=== PATIENT | female | born 1970 ===

== ENCOUNTER 2017-04-25 17:08 | Emergency (ER) | payer OTHER ==
[2017-04-25 17:45] VITALS: BMI 23.3
[2017-04-25] MEDS ORDERED: Sodium Chloride 0.9% 1,000 ML IV STA (17:46)
--- NOTE | 2017-04-25 17:50 | C.PDOC ---
History Of Present Illness 46 y/o F c no PMHx p/w fever x 1 day. Patient states she was having some mild dysuria for a week, not treated and today, began having fever, chills, lower back pain, nausea. Went to PMD Vinod's office and found to be febrile, tachycardic and sent to ED for further evaluation. Patient denies vomiting, diarrhea, rash, abdominal pain, dyspnea, cough. Time Seen by Provider: 04/25/17 17:46 Chief Complaint (Nursing): Back Pain Past Medical History Vital Signs: Last Vital Signs Temp 101 F H 04/25/17 17:50 Pulse 117 H 04/25/17 17:50 Resp 18 04/25/17 17:50 BP 112/74 04/25/17 17:50 Pulse Ox 98 04/25/17 17:51 Family History: States: No Known Family Hx Review Of Systems Except As Marked, All Systems Reviewed And Found Negative. Cardiovascular: Negative for: Chest Pain Respiratory: Negative for: Shortness of Breath Physical Exam - Physical Exam Additional Physical Exam Comments: Gen: NAD Head: NC Eyes: No scleral icterus ENT: MMM Neck: Supple Chest: No tenderness CV: Tachycardic Lungs: CTA b/l Abd: Mild suprapubic tenderness Back: No CVA tenderness Extremities: No swelling Skin: No rash over back Neuro: Alert, no focal deficit ED Course And Treatment - Laboratory Results Result Diagrams: 04/25/17 18:13 04/25/17 18:13 O2 Sat by Pulse Oximetry: 98 Medical Decision Making Medical Decision Making: Hydrate, acetaminophen, Zofran, IVF, check labs and urine. Clinically concerning for pyelonephritis. Depending on response to treatment and lab findings will determine discharge vs inpatient treatment for IV antibiotics. Patient in no acute distress. Labs unremarkable. Negative lactate. No acidosis. Vital signs normalized. 1st dose cipro administered here, will continue PO at home, f/u Dr. Brock, return to ED for worsening pain, fever, dyspnea, vomiting, or any other problem. Disposition Discussed With : Hernesto Brock - Disposition Referrals: Hernesto Brock MD [Staff Provider] - Disposition: HOME/ ROUTINE Disposition Time: 18:54 Condition: STABLE Prescriptions: Acetaminophen [Tylenol 325mg tab] 2 tab PO Q4H #30 tab Ciprofloxacin [Cipro] 500 mg PO BID #14 tab Ondansetron ODT [Zofran ODT] 4 mg PO Q8 #12 odt Instructions: Kidney Infection, Urinary Tract Infections in Adults Forms: [facility] ([place]), Work Excuse - Clinical Impression Clinical Impression: Pyelonephritis
[2017-04-25 18:11] LABS: HCG,QUALITATIVE URINE NEGATIVE (NEGATIVE)
[2017-04-25 18:17] LABS: BASO % 0.4 % (0.0-2.0); HEMOGLOBIN 12.8 g/dL (11.0-16.0); LYMPH # 0.4 K/uL (1.0-4.3); LYMPH % 3.2 % (20.0-40.0); MEAN CELL VOLUME 88.9 fL (81.0-99.0); MEAN CORPUSCULAR HEMOGLOBIN 30.7 pg (27.0-31.0); MEAN CORPUSCULAR HGB CONC 34.5 g/dL (33.0-37.0); MEAN PLATELET VOLUME 7.3 fL (7.2-11.7); MONO # 0.9 K/uL (0.0-0.8); MONO % 7.4 % (0.0-10.0); NEUT # 10.3 K/uL (1.8-7.0); PLATELET COUNT 370 K/uL (130-400); RBC 4.18 Mil/uL (3.80-5.20); RED CELL DISTRIBUTION WIDTH 13.2 % (11.5-14.5); WHITE BLOOD COUNT 11.5 K/uL (4.8-10.8)
[2017-04-25 18:17] LABS: URINE BACTERIA OCC (<OCC); URINE BILIRUBIN NEGATIVE (NEGATIVE); URINE BLOOD 1+ (NEGATIVE); URINE CLARITY Hazy (Clear); URINE COLOR Yellow (YELLOW); URINE GLUCOSE (UA) NORMAL (Normal); URINE LEUKOCYTE ESTERASE 3+ Leu/uL (Negative); URINE NITRATE POSITIVE (NEGATIVE); URINE PROTEIN 2+ mg/dL (NEGATIVE); URINE UROBILINOGEN NORMAL mg/dL (0.2-1.0)
[2017-04-25] MEDS ORDERED: Sodium Chloride 0.9% 1,000 ML ONE (18:24)
[2017-04-25] MEDS ORDERED: Ciprofloxacin 400mg/200ml D5W 400 MG/200 ML BAG IVPB STA (18:28)
[2017-04-25 18:36] LABS: ALB/GLOB RATIO 1.1 (1.0-2.1); ALBUMIN 4.3 g/dL (3.5-5.0); ALT/SGPT 54 U/L (9-52); AST/SGOT 51 U/L (14-36); BLOOD UREA NITROGEN 13 mg/dL (7-17); CALCIUM 9.1 mg/dl (8.6-10.4); GFR AFRICAN-AMERICAN > 60; GFR NON-AFRICAN AMERICAN > 60
[2017-04-25 18:45] LABS: LYMPHOCYTE 6 % (20-40); MONOCYTE 7 % (0-10); NEUTROPHIL 87 % (50-75); TOTAL CELLS COUNTED 100
[2017-04-25 18:46] LABS: PLATELET ESTIMATE NORMAL (NORMAL)
[2017-04-25] MEDS ORDERED: Ciprofloxacin 400mg/200ml D5W 400 MG/200 ML BAG IVPB ONE (18:49)
[2017-04-25 18:51] LABS: VENOUS BLOOD GAS BASE EXCESS 2.5 mmol/L (0.0-2.0); VENOUS BLOOD GAS PCO2 37 mmHg (40-60); VENOUS BLOOD GAS PO2 37 mm/Hg (30-55); VENOUS BLOOD PH 7.46 (7.32-7.43)
[2017-04-25 20:33] VITALS: BP 106/65; PULSE 82; RESP 20; TEMP 98.8; O2SAT 98
== END 2017-04-25 20:36 | disposition home or self-care (01) ==
LOC: C.ER 17:08
DX: N12 Tubulo-interstitial nephritis, not specified as acute or chronic (principal)
CPT/HCPCS: 80053; 81001; 82803; 84703; 85025; 87040; 87086; 87181; 87205; 96361; 96374; 99285; J2405; J7040

== ENCOUNTER 2017-04-26 18:14 | Inpatient (IN) | payer OTHER ==
--- NOTE | 2017-04-26 20:45 | C.PDOC ---
History Of Present Illness Patient is a 46 y/o female who presents to the ED with complaints of fever, chills, and back pain. Patient was seen in ED yesterday for UTI; negative for rods in patient's urine. Patient has no other physical complaints at this time. Time Seen by Provider: 04/26/17 20:45 Chief Complaint (Nursing): Medical Clearance History Per: Patient History/Exam Limitations: no limitations Onset/Duration Of Symptoms: Days (yesterday) Current Symptoms Are (Timing): Still Present Severity: Severe Pain Scale Rating Of: 6 Reports Recently: Seen In ED (seen yesterday) Recent travel outside of the [place]: No Additional History Per: Patient Past Medical History Reviewed: Historical Data, Nursing Documentation, Vital Signs Vital Signs: Last Vital Signs Temp 98 F 04/26/17 18:21 Pulse 71 04/26/17 18:21 Resp 18 04/26/17 18:21 BP 118/76 04/26/17 18:21 Pulse Ox 100 04/26/17 21:03 - Medical History PMH: No Chronic Diseases Surgical History: No Surg Hx Family History: States: No Known Family Hx - Social History Hx Tobacco Use: No Hx Alcohol Use: No Hx Substance Use: No - Immunization History Hx Tetanus Toxoid Vaccination: No Hx Influenza Vaccination: No Hx Pneumococcal Vaccination: No Review Of Systems Constitutional: Positive for: Fever, Chills Cardiovascular: Negative for: Chest Pain Respiratory: Negative for: Shortness of Breath Gastrointestinal: Positive for: Nausea, Abdominal Pain Genitourinary: Positive for: Other (current UTI) Musculoskeletal: Positive for: Back Pain Skin: Negative for: Rash Neurological: Negative for: Weakness Psych: Negative for: Anxiety Physical Exam - Physical Exam Appears: Well, Non-toxic, No Acute Distress Skin: Warm, Dry Head: Normacephalic Eye(s): bilateral: Normal Inspection Oral Mucosa: Moist Neck: Supple Chest: Symmetrical Cardiovascular: Rhythm Regular, No Murmur Respiratory: No Accessory Muscle Use, No Rales, No Rhonchi, No Wheezing Gastrointestinal/Abdominal: Bowel Sounds (positive), Soft, Tenderness (mild suprapubic tenderness ), No Guarding, No Rebound Back: CVA Tenderness Extremity: Normal ROM Extremity: Bilateral: Atraumatic Pulses: Left Dorsalis Pedis: Normal, Right Dorsalis Pedis: Normal Neurological/Psych: Oriented x3, Normal Speech, Normal Cognition Gait: Steady ED Course And Treatment - Laboratory Results Result Diagrams: 04/26/17 21:00 04/26/17 21:00 O2 Sat by Pulse Oximetry: 100 Pulse Ox Interpretation: Normal Progress Note: Blood work, urine culture, and UA ordered. Morphine, zofran, moxifloxacin, and IV fluids administered. spoke with dr young and said to admit to hospitalist Disposition Discussed With Dr.: Nav Cid Comment: accepted the pt on his service and took over the care at 10:30 PM Doctor Will See Patient In The: ED Counseled Patient/Family Regarding: Studies Performed, Diagnosis - Disposition Disposition: HOSPITALIZED Disposition Time: 20:45 Condition: FAIR Forms: [facility] ([place]) - POA Present On Arrival: None - Clinical Impression Clinical Impression: Pyelonephritis - Scribe Statement The provider has reviewed the documentation as recorded by the Scribe Lis Garay All medical record entries made by the Scribe were at my direction and personally dictated by me. I have reviewed the chart and agree that the record accurately reflects my personal performance of the history, physical exam, medical decision making, and the department course for this patient. I have also personally directed, reviewed, and agree with the discharge instructions and disposition. Decision To Admit - Pt Status Changed To: Hospital Disposition Of: Inpatient - Admit Certification Admit to Inpatient:: After my assessment, the patient will require hospitalization for at least two midnights. This is because of the severity of symptoms shown, intensity of services needed, and/or the medical risk in this patient being treated as an outpatient. - InPatient: Physician Admission Certification: I certify that this patient requires 2 or more midnights of care for the following reason:: After my assessment, the patient will require hospitalization for at least two midnights. This is because of the severity of symptoms shown, intensity of services needed, and/or the medical risk in this patient being treated as an outpatient. - . Bed Request Type: Regular Admitting Physician: Nav Cid Patient Diagnosis: Pyelonephritis
[2017-04-26] MEDS ORDERED: Sodium Chloride 0.9% 2,000 ML IV ONE (20:47)
[2017-04-26] MEDS ORDERED: Moxifloxacin IV 400mg/250ml NS 400 MG/250 ML BAG IVPB ONE ×2 (20:50→21:16)
[2017-04-26 21:05] LABS: BASO # 0.1 K/uL (0.0-0.2); BASO % 0.6 % (0.0-2.0); EOS % 0.2 % (0.0-4.0); LYMPH % 9.1 % (20.0-40.0); MEAN CELL VOLUME 89.9 fL (81.0-99.0); MEAN CORPUSCULAR HEMOGLOBIN 30.6 pg (27.0-31.0); MEAN CORPUSCULAR HGB CONC 34.1 g/dL (33.0-37.0); MEAN PLATELET VOLUME 7.3 fL (7.2-11.7); MONO # 1.2 K/uL (0.0-0.8); MONO % 10.1 % (0.0-10.0); NEUT # 9.2 K/uL (1.8-7.0); PLATELET COUNT 377 K/uL (130-400); RBC 4.24 Mil/uL (3.80-5.20); RED CELL DISTRIBUTION WIDTH 13.4 % (11.5-14.5); WHITE BLOOD COUNT 11.5 K/uL (4.8-10.8)
[2017-04-26 21:11] LABS: SQUAMOUS EPITHIAL < 1 /hpf (0-5); URINE BACTERIA RARE (<OCC); URINE BILIRUBIN NEGATIVE (NEGATIVE); URINE BLOOD 1+ (NEGATIVE); URINE CLARITY Clear (Clear); URINE COLOR Yellow (YELLOW); URINE GLUCOSE (UA) NORMAL (Normal); URINE LEUKOCYTE ESTERASE TRACE Leu/uL (Negative); URINE NITRATE NEGATIVE (NEGATIVE); URINE PROTEIN NEGATIVE (NEGATIVE); URINE UROBILINOGEN NORMAL mg/dL (0.2-1.0)
[2017-04-26 21:13] LABS: INR 1.1; PROTHROMBIN TIME 12.6 SECONDS (9.7-12.2)
[2017-04-26] MEDS ORDERED: Sodium Chloride 0.9% 1,000 ML ONE (21:14)
[2017-04-26 21:15] LABS: VENOUS BLOOD GAS BASE EXCESS -0.5 mmol/L (0.0-2.0); VENOUS BLOOD GAS PCO2 39 mmHg (40-60); VENOUS BLOOD GAS PO2 24 mm/Hg (30-55)
[2017-04-26 21:22] LABS: ALB/GLOB RATIO 1.1 (1.0-2.1); ALBUMIN 4.4 g/dL (3.5-5.0); ALT/SGPT 46 U/L (9-52); AST/SGOT 32 U/L (14-36); BLOOD UREA NITROGEN 8 mg/dL (7-17); CALCIUM 9.2 mg/dl (8.6-10.4); GFR AFRICAN-AMERICAN > 60; GFR NON-AFRICAN AMERICAN > 60
[2017-04-26 21:28] LABS: BANDS 2 % (0-2); EOSINOPHIL 1 % (0-4); LYMPHOCYTE 16 % (20-40); MONOCYTE 9 % (0-10); NEUTROPHIL 72 % (50-75); PLATELET ESTIMATE NORMAL (NORMAL); TOTAL CELLS COUNTED 100
--- NOTE | 2017-04-26 23:07 | CP.PCM.HP ---
<Thaddeus Rodriguez - Last Filed: 04/27/17 02:06> History of Present Illness - History of Present Illness History of Present Illness: CC: " UTI" HPI: Patient is a 46 year old female with no past medical history who presents to the ED as instructed by her PMD due to gram negative rods noted in her urine culture and blood culture. Patient reports that she started experience a cough that started last week Saturday and UTI symptoms that started last week . Patient states that by Saturday (04/21/17), her symptoms had improved significantly. However, on 04/23/17, patient noted increase urination and pressure with urination, therefore, she went to see her PMD on , and was sent to the [facility] ED. Patient was noted to have a UTI and was discharged on Ciprofloxacin [Cipro] 500 mg PO BID #14 tab. Patient reports she started to feel better and was even able to go to work on 04/26/17, however, patient noted some fever, chills, back spams and elevated temp after work and was also notified of gram negative rods noted in her urine culture and blood culture, therefore, she came to the ED. During the encounter, patient denied chest pain, palpitations, SOB, nausea, vomiting, hematuria but admits to fever, chills, and back spams PMD: Dr. Brock PMHx: None PSHx: None FHx: Non-contributory Medications: None, expect for new prescription Ciprofloxacin [Cipro] 500 mg PO BID #14 tab, ( Started on 04/25/17) Allergies: Penicillin, Aspirin and percocet ( Dyspnea) Social Hx: lives with and child. Works as a physical therapy. Denies current or former use of tobacco or illicit drugs. Admit ETOH socially Present on Admission - Present on Admission Any Indicators Present on Admission: No Review of Systems - Constitutional Constitutional: Chills, Fever, Malaise. absent: Fatigue, Headache, Lethargy, Weakness - EENT Eyes: absent: Blurred Vision, Change in Vision Ears: absent: Dizziness - Cardiovascular Cardiovascular: absent: Chest Pain, Chest Pain at Rest, Chest Pain with Activity , Dyspnea, Lightheadedness, Palpitations - Respiratory Respiratory: Cough. absent: Dyspnea, Dyspnea on Exertion, Chest Congestion - Gastrointestinal Gastrointestinal: absent: Abdominal Pain, Diarrhea, Nausea, Vomiting - Reproductive: Female Reproductive:Female: Menses 1-7 Days. absent: Vaginal Discharge - Musculoskeletal Musculoskeletal: absent: Muscle Weakness, Neck Pain, Numbness, Tingling - Neurological Neurological: absent: Confusion, Dizziness, Headaches, Tingling, Tremor, Weakness - Psychiatric Psychiatric: absent: Anxiety - Endocrine Endocrine: absent: Fatigue, Palpitations Past Patient History - Past Social History Smoking Status: Never Smoked - PSYCHIATRIC Hx Substance Use: No - SURGICAL HISTORY Hx Surgeries: No Meds Allergies/Adverse Reactions: Allergies Allergy/AdvReac Type Severity Reaction Status Date / Time aspirin Allergy Severe ANAPHYLAXIS Verified 04/26/17 18:23 Penicillins Allergy Unknown Verified 04/26/17 18:23 seafood Allergy Severe SWELLING Uncoded 04/26/17 18:23 Physical Exam - Constitutional Appears: No Acute Distress - Head Exam Head Exam: ATRAUMATIC, NORMAL INSPECTION - Eye Exam Eye Exam: EOMI, Normal appearance - ENT Exam ENT Exam: Mucous Membranes Dry - Respiratory Exam Respiratory Exam: Clear to Auscultation Bilateral, NORMAL BREATHING PATTERN. absent: Rhonchi, Wheezes - Cardiovascular Exam Cardiovascular Exam: REGULAR RHYTHM, +S1, +S2 - GI/Abdominal Exam GI & Abdominal Exam: Normal Bowel Sounds. absent: Tenderness - Extremities Exam Extremities exam: Positive for: normal inspection. Negative for: calf tenderness, pedal edema - Back Exam Back exam: absent: CVA tenderness (L), CVA tenderness (R), paraspinal tenderness , rash noted, vertebral tenderness - Neurological Exam Neurological exam: Alert, Oriented x3 - Psychiatric Exam Psychiatric exam: Normal Affect, Normal Mood Results - Vital Signs Recent Vital Signs: Last Vital Signs Temp 99.8 F H 04/26/17 22:57 Pulse 102 H 04/26/17 22:57 Resp 20 04/26/17 22:57 BP 125/78 04/26/17 22:57 Pulse Ox 99 04/26/17 22:57 - Labs Result Diagrams: 04/26/17 21:00 04/26/17 21:00 Labs: Laboratory Results - last 24 hr 04/26/17 04/26/17 04/26/17 21:00 21:00 21:00 WBC 11.5 H RBC 4.24 Hgb 13.0 Hct 38.1 MCV 89.9 MCH 30.6 MCHC 34.1 RDW 13.4 Plt Count 377 MPV 7.3 Neut % (Auto) 80.0 H Lymph % (Auto) 9.1 L [place] % (Auto) 10.1 H Eos % (Auto) 0.2 Baso % (Auto) 0.6 Neut # (Auto) 9.2 H Lymph # (Auto) 1.0 [place] # (Auto) 1.2 H Eos # (Auto) 0.0 Baso # (Auto) 0.1 Neutrophils % (Manual) 72 Band Neutrophils % 2 Lymphocytes % (Manual) 16 L Monocytes % (Manual) 9 Eosinophils % (Manual) 1 Platelet Estimate Normal PT 12.6 H INR 1.1 APTT 29 pO2 VBG pH VBG pCO2 VBG HCO3 VBG Total CO2 VBG O2 Sat (Calc) VBG Base Excess VBG Potassium Glucose Lactate Sodium 136 Potassium 3.5 L Chloride 96 L Carbon Dioxide 26 Anion Gap 18 BUN 8 Creatinine 0.7 Est GFR ( Amer) > 60 Est GFR (Non-Af Amer) > 60 Random Glucose 94 Calcium 9.2 Total Bilirubin 0.9 AST 32 ALT 46 Alkaline Phosphatase 62 Total Protein 8.6 H Albumin 4.4 Globulin 4.1 H Albumin/Globulin Ratio 1.1 Venous Blood Potassium Urine Color Urine Clarity Urine pH Ur Specific [place] Urine Protein Urine Glucose (UA) Urine Ketones Urine Blood Urine Nitrate Urine Bilirubin Urine Urobilinogen Ur Leukocyte Esterase Urine WBC (Auto) Urine RBC (Auto) Ur Squamous Epith Cells Ur Transition Epith Cell Urine Bacteria 04/26/17 04/26/17 21:00 21:10 WBC RBC Hgb Hct MCV MCH MCHC RDW Plt Count MPV Neut % (Auto) Lymph % (Auto) [place] % (Auto) Eos % (Auto) Baso % (Auto) Neut # (Auto) Lymph # (Auto) [place] # (Auto) Eos # (Auto) Baso # (Auto) Neutrophils % (Manual) Band Neutrophils % Lymphocytes % (Manual) Monocytes % (Manual) Eosinophils % (Manual) Platelet Estimate PT INR APTT pO2 24 L VBG pH 7.40 VBG pCO2 39 L VBG HCO3 23.1 VBG Total CO2 25.4 VBG O2 Sat (Calc) 41.6 VBG Base Excess -0.5 L VBG Potassium 3.6 Glucose 86 Lactate 1.4 Sodium 136.0 Potassium Chloride 101.0 Carbon Dioxide Anion Gap BUN Creatinine Est GFR ( Amer) Est GFR (Non-Af Amer) Random Glucose Calcium Total Bilirubin AST ALT Alkaline Phosphatase Total Protein Albumin Globulin Albumin/Globulin Ratio Venous Blood Potassium 3.6 Urine Color Yellow Urine Clarity Clear Urine pH 5.0 Ur Specific [place] 1.008 Urine Protein Negative Urine Glucose (UA) Normal Urine Ketones Trace Urine Blood 1+ H Urine Nitrate Negative Urine Bilirubin Negative Urine Urobilinogen Normal Ur Leukocyte Esterase Trace Urine WBC (Auto) 5 Urine RBC (Auto) 4 H Ur Squamous Epith Cells < 1 Ur Transition Epith Cell < 1 Urine Bacteria Rare Assessment & Plan (1) Urinary tract infection Assessment and Plan: Dr. Kalen LOUIE consulted---> help appreciated Possible complicated by pyleonephritis On admission: * wbc: 11.5 * UC AND BC: Gram negative rods; F/U sensitivity * F/U repeat UC and BC Medications: * Cipro 400mg IV Q12H (Started 04/27/17) * Gentamicin 330mg PO daily (04/26/17) * Tylenol 650mg PO Q6H PRN for fever > 100.4 * NS @ 100mls/hr Status: Acute (2) Leukocytosis Assessment and Plan: Dr. Kalen LOUIE consulted---> help appreciated On admission: * wbc: 11.5 * UC AND BC: Gram negative rods; F/U sensitivity Medications: * Cipro 400mg IV Q12H (Started 04/27/17) * Gentamicin 330mg PO daily (04/26/17) * Tylenol 650mg PO Q6H PRN for fever > 100.4 * NS @ 100mls/hr Status: Acute (3) Hypokalemia Assessment and Plan: K+: 3.5 * K-DUR 40meq given * Monitor with am labs Status: Acute (4) Prophylactic measure Assessment and Plan: GI: Pepcid 20mg PO daily DVT: SCDs, ambulates All plans and management discussed with Dr. Cid Status: Acute <Nav Cid P - Last Filed: 04/27/17 07:08> Results - Vital Signs Recent Vital Signs: Last Vital Signs Temp 100.9 F H 04/27/17 00:16 Pulse 89 04/27/17 00:00 Resp 20 04/27/17 00:00 BP 102/57 L 02/24/18 00:00 Pulse Ox 98 04/27/17 00:00 - Labs Result Diagrams: 04/26/17 21:00 04/26/17 21:00 Labs: Laboratory Results - last 24 hr 04/26/17 04/26/17 04/26/17 21:00 21:00 21:00 WBC 11.5 H RBC 4.24 Hgb 13.0 Hct 38.1 MCV 89.9 MCH 30.6 MCHC 34.1 RDW 13.4 Plt Count 377 MPV 7.3 Neut % (Auto) 80.0 H Lymph % (Auto) 9.1 L [place] % (Auto) 10.1 H Eos % (Auto) 0.2 Baso % (Auto) 0.6 Neut # (Auto) 9.2 H Lymph # (Auto) 1.0 [place] # (Auto) 1.2 H Eos # (Auto) 0.0 Baso # (Auto) 0.1 Neutrophils % (Manual) 72 Band Neutrophils % 2 Lymphocytes % (Manual) 16 L Monocytes % (Manual) 9 Eosinophils % (Manual) 1 Platelet Estimate Normal PT 12.6 H INR 1.1 APTT 29 pO2 VBG pH VBG pCO2 VBG HCO3 VBG Total CO2 VBG O2 Sat (Calc) VBG Base Excess VBG Potassium Glucose Lactate Sodium 136 Potassium 3.5 L Chloride 96 L Carbon Dioxide 26 Anion Gap 18 BUN 8 Creatinine 0.7 Est GFR ( Amer) > 60 Est GFR (Non-Af Amer) > 60 Random Glucose 94 Calcium 9.2 Total Bilirubin 0.9 AST 32 ALT 46 Alkaline Phosphatase 62 Total Protein 8.6 H Albumin 4.4 Globulin 4.1 H Albumin/Globulin Ratio 1.1 Venous Blood Potassium Urine Color Urine Clarity Urine pH Ur Specific [place] Urine Protein Urine Glucose (UA) Urine Ketones Urine Blood Urine Nitrate Urine Bilirubin Urine Urobilinogen Ur Leukocyte Esterase Urine WBC (Auto) Urine RBC (Auto) Ur Squamous Epith Cells Ur Transition Epith Cell Urine Bacteria 04/26/17 04/26/17 21:00 21:10 WBC RBC Hgb Hct MCV MCH MCHC RDW Plt Count MPV Neut % (Auto) Lymph % (Auto) [place] % (Auto) Eos % (Auto) Baso % (Auto) Neut # (Auto) Lymph # (Auto) [place] # (Auto) Eos # (Auto) Baso # (Auto) Neutrophils % (Manual) Band Neutrophils % Lymphocytes % (Manual) Monocytes % (Manual) Eosinophils % (Manual) Platelet Estimate PT INR APTT pO2 24 L VBG pH 7.40 VBG pCO2 39 L VBG HCO3 23.1 VBG Total CO2 25.4 VBG O2 Sat (Calc) 41.6 VBG Base Excess -0.5 L VBG Potassium 3.6 Glucose 86 Lactate 1.4 Sodium 136.0 Potassium Chloride 101.0 Carbon Dioxide Anion Gap BUN Creatinine Est GFR ( Amer) Est GFR (Non-Af Amer) Random Glucose Calcium Total Bilirubin AST ALT Alkaline Phosphatase Total Protein Albumin Globulin Albumin/Globulin Ratio Venous Blood Potassium 3.6 Urine Color Yellow Urine Clarity Clear Urine pH 5.0 Ur Specific [place] 1.008 Urine Protein Negative Urine Glucose (UA) Normal Urine Ketones Trace Urine Blood 1+ H Urine Nitrate Negative Urine Bilirubin Negative Urine Urobilinogen Normal Ur Leukocyte Esterase Trace Urine WBC (Auto) 5 Urine RBC (Auto) 4 H Ur Squamous Epith Cells < 1 Ur Transition Epith Cell < 1 Urine Bacteria Rare Attending/Attestation - Attestation I have personally seen and examined this patient.: Yes I have fully participated in the care of the patient.: Yes I have reviewed all pertinent clinical information: Yes Notes (Text): 04/27/17 07:05 Assessment Gm negative bacterimia most likely started as uti as source as positive in urine as well, but pending id and sensitivity to confirm, patient felt better on cipro in her uti symptoms. Allergic to pcn, type not known, also allergic to opiods with difficulty in breathing. Plan Continue on cipro as patient had response, add genta till cultures confirm sensitivity and fever resolves. ID consult gi, dvt prophylaxis. See orders for detail.
[2017-04-26 23:21] VITALS: BMI 24.0
[2017-04-27] MEDS: Sodium Chloride 0.9% 1,000 ML IV SCH ×3 (00:30→21:36)
[2017-04-27] MEDS: Gentamicin 330 MG in Sodium Chloride 0.9% 250 ML IVPB SCH (00:45)
[2017-04-27 01:23] VITALS: RESP 20
[2017-04-27] MEDS ORDERED: Potassium Chloride 20 mEq ER Tab PO ONE (02:28)
[2017-04-27 07:54] LABS: BASO % 0.4 % (0.0-2.0); HEMOGLOBIN 11.3 g/dL (11.0-16.0); LYMPH # 0.8 K/uL (1.0-4.3); LYMPH % 7.8 % (20.0-40.0); MEAN CELL VOLUME 89.5 fL (81.0-99.0); MEAN CORPUSCULAR HEMOGLOBIN 30.8 pg (27.0-31.0); MEAN CORPUSCULAR HGB CONC 34.4 g/dL (33.0-37.0); MEAN PLATELET VOLUME 7.4 fL (7.2-11.7); MONO # 1.2 K/uL (0.0-0.8); MONO % 12.2 % (0.0-10.0); NEUT # 7.7 K/uL (1.8-7.0); NEUT % 79.6 % (50.0-75.0); PLATELET COUNT 305 K/uL (130-400); RBC 3.68 Mil/uL (3.80-5.20); RED CELL DISTRIBUTION WIDTH 13.4 % (11.5-14.5); WHITE BLOOD COUNT 9.7 K/uL (4.8-10.8)
[2017-04-27 08:09] LABS: ALBUMIN 3.2 g/dL (3.5-5.0); ALT/SGPT 40 U/L (9-52); AST/SGOT 28 U/L (14-36); BLOOD UREA NITROGEN 5 mg/dL (7-17); CALCIUM 7.7 mg/dl (8.6-10.4); GFR AFRICAN-AMERICAN > 60; GFR NON-AFRICAN AMERICAN > 60
[2017-04-27] MEDS: Saccharomyces Boulardi 250 mg Cap PO SCH ×2 (09:38→17:30)
[2017-04-27] MEDS: Ciprofloxacin 400mg/200ml D5W 400 MG/200 ML BAG IVPB SCH ×2 (09:42→21:31)
--- NOTE | 2017-04-27 09:53 | CP.PCM.PN ---
<Porter Garcia S - Last Filed: 04/27/17 09:53> Subjective - Date & Time of Evaluation Date of Evaluation: 04/27/17 Time of Evaluation: 09:53 - Subjective Subjective: Progress note pt seen and examined at bedside. Objective - Vital Signs/Intake and Output Vital Signs (last 24 hours): Temp Pulse Resp BP Pulse Ox 99.8 F H 77 20 107/67 97 04/27/17 09:05 04/27/17 09:05 04/27/17 09:05 04/27/17 09:05 04/27/17 09:05 Intake and Output: 04/27/17 04/27/17 06:59 18:59 Intake Total 840 Balance 840 - Medications Medications: Current Medications Acetaminophen (Tylenol 325mg Tab) 650 mg PO Q6 PRN PRN Reason: Fever >100.4 F Last Admin: 04/26/17 23:16 Dose: 650 mg Famotidine (Pepcid) 20 mg PO DAILY [facility] Last Admin: 04/27/17 09:39 Dose: 20 mg Heparin Sodium (Porcine) (Heparin) 5,000 units SC Q12H [facility] Last Admin: 04/27/17 09:45 Dose: 5,000 units Gentamicin Sulfate 330 mg/ (Sodium Chloride) 258.25 mls @ 172.167 mls/hr IVPB Q24H [facility] Last Admin: 04/27/17 00:45 Dose: 172.167 mls/hr Sodium Chloride (Sodium Chloride 0.9%) 1,000 mls @ 100 mls/hr IV .Q10H [facility] Last Admin: 04/27/17 00:30 Dose: 100 mls/hr Ciprofloxacin (Cipro 400mg/200ml Dsw) 400 mg in 200 mls @ 133 mls/hr IVPB Q12H [facility] Last Admin: 04/27/17 09:42 Dose: 133 mls/hr Pneumococcal Polyvalent Vaccine (Pneumovax 23 Vaccine) 0.5 ml IM .ONCE ONE Stop: 04/28/17 10:01 Saccharomyces Boulardii (Florastor) 250 mg PO BID [facility] Last Admin: 04/27/17 09:38 Dose: 250 mg - Labs Labs: 04/27/17 07:34 04/27/17 07:34 PT 12.6 SECONDS (9.7-12.2) H 04/26/17 21:00 INR 1.1 04/26/17 21:00 APTT 29 SECONDS (21-34) 04/26/17 21:00 <William Harris H - Last Filed: 04/27/17 11:01> Objective - Vital Signs/Intake and Output Vital Signs (last 24 hours): Temp Pulse Resp BP Pulse Ox 99.8 F H 77 20 107/67 97 04/27/17 09:05 04/27/17 09:05 04/27/17 09:05 04/27/17 09:05 04/27/17 09:05 Intake and Output: 04/27/17 04/27/17 06:59 18:59 Intake Total 840 Balance 840 - Medications Medications: Current Medications Acetaminophen (Tylenol 325mg Tab) 650 mg PO Q6 PRN PRN Reason: Fever >100.4 F Last Admin: 04/26/17 23:16 Dose: 650 mg Famotidine (Pepcid) 20 mg PO DAILY [facility] Last Admin: 04/27/17 09:39 Dose: 20 mg Heparin Sodium (Porcine) (Heparin) 5,000 units SC Q12H [facility] Last Admin: 04/27/17 09:45 Dose: 5,000 units Gentamicin Sulfate 330 mg/ (Sodium Chloride) 258.25 mls @ 172.167 mls/hr IVPB Q24H [facility] Last Admin: 04/27/17 00:45 Dose: 172.167 mls/hr Sodium Chloride (Sodium Chloride 0.9%) 1,000 mls @ 100 mls/hr IV .Q10H [facility] Last Admin: 04/27/17 00:30 Dose: 100 mls/hr Ciprofloxacin (Cipro 400mg/200ml Dsw) 400 mg in 200 mls @ 133 mls/hr IVPB Q12H [facility] Last Admin: 04/27/17 09:42 Dose: 133 mls/hr Pneumococcal Polyvalent Vaccine (Pneumovax 23 Vaccine) 0.5 ml IM .ONCE ONE Stop: 04/28/17 10:01 Saccharomyces Boulardii (Florastor) 250 mg PO BID [facility] Last Admin: 04/27/17 09:38 Dose: 250 mg - Labs Labs: 04/27/17 07:34 04/27/17 07:34 PT 12.6 SECONDS (9.7-12.2) H 04/26/17 21:00 INR 1.1 04/26/17 21:00 APTT 29 SECONDS (21-34) 04/26/17 21:00
--- NOTE | 2017-04-27 10:47 | CP.PCM.PN ---
Subjective - Date & Time of Evaluation Date of Evaluation: 04/27/17 Time of Evaluation: 10:30 - Subjective Subjective: As mentioned in the HPI, this is a 46 year old female who was seen in ED and asked to return since blood cultures showed gram negative rods. A urine culture is showing E coli that is sensitive to many abx. Currently she is on Cipro as well as Gentamicin. Patient was ambulating in the room She reported feeling well. She did not report any dysuria or frequency when urinating. Also denied abdominal pain and denied having flank pain. Denied fevers this morning. Denied shortness of breath, denied chest pain, denied headache. She did + have fevers overnight. She asked if she could go home tomorrow - however we cautioned her that the blood culture has not yet finalized and that bacteremia was something to not take lightly. Objective - Vital Signs/Intake and Output Vital Signs (last 24 hours): Temp Pulse Resp BP Pulse Ox 99.8 F H 77 20 107/67 97 04/27/17 09:05 04/27/17 09:05 04/27/17 09:05 04/27/17 09:05 04/27/17 09:05 Intake and Output: 04/27/17 04/27/17 06:59 18:59 Intake Total 840 Balance 840 - Medications Medications: Current Medications Acetaminophen (Tylenol 325mg Tab) 650 mg PO Q6 PRN PRN Reason: Fever >100.4 F Last Admin: 04/26/17 23:16 Dose: 650 mg Famotidine (Pepcid) 20 mg PO DAILY [facility] Last Admin: 04/27/17 09:39 Dose: 20 mg Heparin Sodium (Porcine) (Heparin) 5,000 units SC Q12H [facility] Last Admin: 04/27/17 09:45 Dose: 5,000 units Gentamicin Sulfate 330 mg/ (Sodium Chloride) 258.25 mls @ 172.167 mls/hr IVPB Q24H [facility] Last Admin: 04/27/17 00:45 Dose: 172.167 mls/hr Sodium Chloride (Sodium Chloride 0.9%) 1,000 mls @ 100 mls/hr IV .Q10H [facility] Last Admin: 04/27/17 00:30 Dose: 100 mls/hr Ciprofloxacin (Cipro 400mg/200ml Dsw) 400 mg in 200 mls @ 133 mls/hr IVPB Q12H [facility] Last Admin: 04/27/17 09:42 Dose: 133 mls/hr Pneumococcal Polyvalent Vaccine (Pneumovax 23 Vaccine) 0.5 ml IM .ONCE ONE Stop: 04/28/17 10:01 Saccharomyces Boulardii (Florastor) 250 mg PO BID [facility] Last Admin: 04/27/17 09:38 Dose: 250 mg - Labs Labs: 04/27/17 07:34 04/27/17 07:34 PT 12.6 SECONDS (9.7-12.2) H 04/26/17 21:00 INR 1.1 04/26/17 21:00 APTT 29 SECONDS (21-34) 04/26/17 21:00 - Constitutional Appears: Well, Non-toxic, No Acute Distress - Head Exam Head Exam: NORMAL INSPECTION, NORMOCEPHALIC - Eye Exam Eye Exam: EOMI, Normal appearance - ENT Exam ENT Exam: Mucous Membranes Moist - Respiratory Exam Respiratory Exam: Clear to Ausculation Bilateral, NORMAL BREATHING PATTERN - Cardiovascular Exam Cardiovascular Exam: REGULAR RHYTHM - GI/Abdominal Exam GI & Abdominal Exam: Soft, Normal Bowel Sounds. absent: Firm, Guarding, Rigid, Tenderness - Back Exam Back Exam: NORMAL INSPECTION. absent: CVA tenderness (R) Additional comments: Patient did not have flank tenderness with palpation of the sides/ - Neurological Exam Neurological Exam: Alert, Awake, CN II-XII Intact, Normal Gait, Oriented x3 Neuro motor strength exam: Left Upper Extremity: 5, Right Upper Extremity: 5, Left Lower Extremity: 5, Right Lower Extremity: 5 - Psychiatric Exam Psychiatric exam: Normal Affect, Normal Mood - Skin Skin Exam: Normal Color, Warm Assessment and Plan - Assessment and Plan (Free Text) Assessment: Assessment & Plan (1) Urinary tract infection - E coli Assessment and Plan: 04/27: WBC decreased. She had fevers overnight. She feels well today, ambulating , denying urination symptoms. She did not exhibit flank pain on palpation so will for now hold off on CT scan. The patient had urine culture + E coli Overnight team consulted ID Medications: * Cipro 400mg IV Q12H (Started 04/27/17) * Gentamicin 330mg PO daily (04/26/17) * Tylenol 650mg PO Q6H PRN for fever > 100.4 * NS @ 100mls/hr (2) Gram negative bacteremia Assessment and Plan: 04/27: We are still pending the finalization of the blood culture - so for now continue with the Cipro and Gentamycin Medications: * Cipro 400mg IV Q12H (Started 04/27/17) * Gentamicin 330mg PO daily (04/26/17) * Tylenol 650mg PO Q6H PRN for fever > 100.4 * NS @ 100mls/hr (3) Hypokalemia Assessment and Plan: 04/27: Today improved, continue to monitor * K-DUR 40meq given * Monitor with am labs (4) Prophylactic measure Assessment and Plan: GI: Pepcid 20mg PO daily DVT: SCDs, ambulates
[2017-04-27 10:59] LABS: BANDS 1 % (0-2); EOSINOPHIL 1 % (0-4); LYMPHOCYTE 6 % (20-40); MONOCYTE 15 % (0-10); NEUTROPHIL 77 % (50-75); PLATELET ESTIMATE NORMAL (NORMAL); TOTAL CELLS COUNTED 100
[2017-04-27 11:00] LABS: OVALOCYTES SLIGHT
[2017-04-27] MEDS ORDERED: Ciprofloxacin 200mg/100ml D5W 100 ML IVPB SCH (11:00)
[2017-04-28] MEDS: Gentamicin 330 MG in Sodium Chloride 0.9% 250 ML IVPB SCH (00:02)
[2017-04-28] MEDS: Sodium Chloride 0.9% 1,000 ML IV SCH ×3 (06:38→18:33)
[2017-04-28 08:12] LABS: BASO # 0.1 K/uL (0.0-0.2); BASO % 0.8 % (0.0-2.0); EOS % 0.5 % (0.0-4.0); HEMOGLOBIN 11.9 g/dL (11.0-16.0); LYMPH # 1.4 K/uL (1.0-4.3); LYMPH % 20.3 % (20.0-40.0); MEAN CELL VOLUME 90.1 fL (81.0-99.0); MEAN CORPUSCULAR HEMOGLOBIN 31.2 pg (27.0-31.0); MEAN CORPUSCULAR HGB CONC 34.6 g/dL (33.0-37.0); MEAN PLATELET VOLUME 7.3 fL (7.2-11.7); MONO % 13.6 % (0.0-10.0); NEUT # 4.6 K/uL (1.8-7.0); NEUT % 64.8 % (50.0-75.0); RBC 3.81 Mil/uL (3.80-5.20); RED CELL DISTRIBUTION WIDTH 13.2 % (11.5-14.5)
[2017-04-28 08:37] LABS: ALBUMIN 3.7 g/dL (3.5-5.0); ALT/SGPT 44 U/L (9-52); AST/SGOT 31 U/L (14-36); BLOOD UREA NITROGEN 7 mg/dL (7-17); CALCIUM 8.6 mg/dl (8.6-10.4); GFR AFRICAN-AMERICAN > 60; GFR NON-AFRICAN AMERICAN > 60
[2017-04-28] MEDS: Saccharomyces Boulardi 250 mg Cap PO SCH ×2 (09:28→18:32)
[2017-04-28] MEDS: Ciprofloxacin 400mg/200ml D5W 400 MG/200 ML BAG IVPB SCH ×2 (09:29→20:38)
[2017-04-28] MEDS ORDERED: Pneumococcal 23-Valent Vaccine IM ONE (10:00)
[2017-04-28] MEDS ORDERED: Influenza Vaccine 60 mcg/0.5 mL SYR (4YR UP) IM ONE (10:00)
--- NOTE | 2017-04-28 11:16 | CP.PCM.PN ---
<Porter Garcia S - Last Filed: 04/28/17 11:13> Subjective - Date & Time of Evaluation Date of Evaluation: 04/28/17 Time of Evaluation: 11:13 - Subjective Subjective: Progress note for Dr. Harris's Service Pt seen and examined at bedside. She is pleasant and states that she is feeling well. She is ambulating around her room and in the hallways. No acute complaints overnight. Objective - Vital Signs/Intake and Output Vital Signs (last 24 hours): Temp Pulse Resp BP Pulse Ox 98.4 F 60 20 96/58 L 98 04/28/17 00:00 04/28/17 00:00 04/28/17 00:00 04/28/17 00:00 04/27/17 17:14 Intake and Output: 04/28/17 04/28/17 06:59 18:59 Intake Total 1260 1000 Balance 1260 1000 - Medications Medications: Current Medications Acetaminophen (Tylenol 325mg Tab) 650 mg PO Q6 PRN PRN Reason: Fever >100.4 F Last Admin: 04/26/17 23:16 Dose: 650 mg Famotidine (Pepcid) 20 mg PO DAILY [facility] Last Admin: 04/28/17 09:28 Dose: 20 mg Heparin Sodium (Porcine) (Heparin) 5,000 units SC Q12H [facility] Last Admin: 04/28/17 09:34 Dose: Not Given Sodium Chloride (Sodium Chloride 0.9%) 1,000 mls @ 100 mls/hr IV .Q10H [facility] Last Admin: 04/28/17 06:38 Dose: 100 mls/hr Ciprofloxacin (Cipro 400mg/200ml Dsw) 400 mg in 200 mls @ 133 mls/hr IVPB Q12H [facility] Last Admin: 04/28/17 09:29 Dose: 133 mls/hr Saccharomyces Boulardii (Florastor) 250 mg PO BID [facility] Last Admin: 04/28/17 09:28 Dose: 250 mg - Labs Labs: 04/28/17 07:57 04/28/17 07:57 PT 12.6 SECONDS (9.7-12.2) H 04/26/17 21:00 INR 1.1 04/26/17 21:00 APTT 29 SECONDS (21-34) 04/26/17 21:00 - Head Exam Head Exam: ATRAUMATIC, NORMOCEPHALIC - Eye Exam Eye Exam: EOMI - ENT Exam ENT Exam: Mucous Membranes Moist - Respiratory Exam Respiratory Exam: Clear to Ausculation Bilateral, NORMAL BREATHING PATTERN - Cardiovascular Exam Cardiovascular Exam: REGULAR RHYTHM, +S1, +S2 - GI/Abdominal Exam GI & Abdominal Exam: Soft. absent: Distended, Tenderness - Extremities Exam Extremities Exam: absent: Calf Tenderness, Pedal Edema, Tenderness - Neurological Exam Neurological Exam: Alert, Awake, Oriented x3 - Psychiatric Exam Psychiatric exam: Normal Affect, Normal Mood - Skin Skin Exam: Dry, Warm Assessment and Plan - Assessment and Plan (Free Text) Plan: Urinary tract infection - E coli 04/28: WBC normal today. She had fevers overnight. She feels well today, ambulating, denying urination symptoms. She did not exhibit flank pain on palpation so will for now hold off on CT scan. The patient had urine culture + E coli sensitive for cipro Blood cx is positive for E. Coli also sensitive to cipro Overnight team consulted ID Medications: * Cipro 400mg IV Q12H (Started 04/27/17) * Gentamicin 330mg PO daily (04/26/17)- discontinued today 04/28/17 * Tylenol 650mg PO Q6H PRN for fever > 100.4 * NS @ 100mls/hr Gram negative bacteremia 04/28: Blood cx is positive for E. Coli also sensitive to cipro Medications: * Cipro 400mg IV Q12H (Started 04/27/17) * Gentamicin 330mg PO daily (04/26/17)- discontinued today 04/28/17 * Tylenol 650mg PO Q6H PRN for fever > 100.4 * NS @ 100mls/hr Hypokalemia 04/27: Today improved, continue to monitor * K-DUR 40meq given * Monitor with am labs * normal 04/28/17-3.7 Prophylactic measure GI: Pepcid 20mg PO daily DVT: SCD's, ambulating case discussed with Dr. Kimberly Garica DLeandro <William Harris - Last Filed: 04/28/17 11:44> Objective - Vital Signs/Intake and Output Vital Signs (last 24 hours): Temp Pulse Resp BP Pulse Ox 98.4 F 60 20 96/58 L 98 04/28/17 00:00 04/28/17 00:00 04/28/17 00:00 04/28/17 00:00 04/27/17 17:14 Intake and Output: 04/28/17 04/28/17 06:59 18:59 Intake Total 1260 1000 Balance 1260 1000 - Medications Medications: Current Medications Acetaminophen (Tylenol 325mg Tab) 650 mg PO Q6 PRN PRN Reason: Fever >100.4 F Last Admin: 04/26/17 23:16 Dose: 650 mg Famotidine (Pepcid) 20 mg PO DAILY [facility] Last Admin: 04/28/17 09:28 Dose: 20 mg Sodium Chloride (Sodium Chloride 0.9%) 1,000 mls @ 100 mls/hr IV .Q10H [facility] Last Admin: 04/28/17 06:38 Dose: 100 mls/hr Ciprofloxacin (Cipro 400mg/200ml Dsw) 400 mg in 200 mls @ 133 mls/hr IVPB Q12H [facility] Last Admin: 04/28/17 09:29 Dose: 133 mls/hr Saccharomyces Boulardii (Florastor) 250 mg PO BID [facility] Last Admin: 04/28/17 09:28 Dose: 250 mg - Labs Labs: 04/28/17 07:57 04/28/17 07:57 PT 12.6 SECONDS (9.7-12.2) H 04/26/17 21:00 INR 1.1 04/26/17 21:00 APTT 29 SECONDS (21-34) 04/26/17 21:00 Attending/Attestation - Attestation I have personally seen and examined this patient.: Yes I have fully participated in the care of the patient.: Yes I have reviewed all pertinent clinical information, including history, physical exam and plan: Yes Notes (Text): 04/28/17 11:42 Medical attending: Patient was seen and examined by me. Agree with the above note by the resident The patient had her family present. She was ok with family being there. Her blood cultures from the time she first came in showed + E coli with a lot of sensitivities to abx. The FRIAD to cipro was <.25 so will hold the gentamicin and continue with the IV cipro for now Her WBC decreased. She reported feeling well. Denied dysuira, denied abominal pain, denied fever, denied flank pain thank you William Harris
--- NOTE | 2017-04-28 15:25 | CP.PCM.CON ---
History of Present Illness - History of Present Illness History of Present Illness: 46 year old female with no past medical history who presents to the ED as instructed by her PMD due to gram negative rods noted in her urine culture and blood culture. Patient reports that she started experience UTI symptoms that started last week . went to see her PMD on , 04/25/17 and was sent to the [facility] ED. Patient was noted to have a UTI and was discharged on Ciprofloxacin [ Cipro] 500 mg PO BID #14 tab. PMD: Dr. Brock PMHx: None PSHx: None FHx: Non-contributory Medications: None, expect for new prescription Ciprofloxacin [Cipro] 500 mg PO BID #14 tab, ( Started on 04/25/17) Allergies: Penicillin, Aspirin and percocet ( Dyspnea) Social Hx: lives with and child. Works as a physical therapy. Denies current or former use of tobacco or illicit drugs. Admit ETOH socially Review of Systems - Constitutional Constitutional: As Per HPI - EENT Eyes: absent: As Per HPI, Blind Spots, Blurred Vision, Change in Vision, Decreased Night Vision, Diplopia, Discharge, Dry Eye, Exophthalmos, Floaters, Irritation, Itchy Eyes, Loss of Peripheral Vision, Pain, Photophobia, Requires Corrective Lenses, Sees Flashes, Spots in Vision, Tunnel Vision, Other Visual Disturbances, Loss of Vision, Other Ears: absent: As Per HPI, Decreased Hearing, Ear Discharge, Ear Pain, Tinnitus, Abnormal Hearing, Disequilibrium, Dizziness, Other Nose/Mouth/Throat: absent: As Per HPI, Epistaxis, Nasal Congestion, Nasal Discharge, Nasal Obstruction, Nasal Trauma, Nose Pain, Post Nasal Drip, Sinus Pain, Sinus Pressure, Bleeding Gums, Change in Voice, Dental Pain, Dry Mouth, Dysphagia, Halitosis, Hoarsness, Lip Swelling, Mouth Lesions, Mouth Pain, Odynophagia, Sore Throat, Throat Swelling, Tongue Swelling, Facial Pain, Neck Pain, Neck Mass, Other - Breasts Breasts: absent: As Per HPI, Change in Shape, Mass, Pain, Nipple Discharge, Nipple Inversion, Skin Changes, Swelling, Other - Cardiovascular Cardiovascular: absent: As Per HPI, Acrocyanosis, Chest Pain, Chest Pain at Rest , Chest Pain with Activity, Claudication, Diaphoresis, Dyspnea, Dyspnea on Exertion, Edema, Irregular Heart Rhythm, Pain Radiating to Arm/Neck/Jaw, Leg Edema, Leg Ulcers, Lightheadedness, Orthopnea, Palpitations, Paroxysmal Nocturnal Dyspnea, Pedal Edema, Radiating Pain, Rapid Heart Rate, Slow Heart Rate, Syncope, Other - Respiratory Respiratory: absent: As Per HPI, Cough, Dyspnea, Hemoptysis, Dyspnea on Exertion , Wheezing, Snoring, Stridor, Pain on Inspiration, Chest Congestion, Excessive Mucous Production, Change in Mucous Color, Pain with Coughing, Other - Gastrointestinal Gastrointestinal: absent: As Per HPI, Abdominal Pain, Belching, Bloating, Change in Bowel Habits, Change in Stool Character, Coffee Ground Emesis, Constipation, Cramping, Diarrhea, Dyspepsia, Dysphagia, Early Satiety, Excessive Flatus, Fecal Incontinence, Heartburn, Hematemesis, Hematochezia, Loose Stools, Melena, Nausea, Odynophagia, Temesmus, Vomiting, Other - Genitourinary Genitourinary: As Per HPI - Reproductive: Female Reproductive:Female: absent: As Per HPI, Amenorrhea, Amenorrhea/ Control, Currently Menstual, Cycle <21 Days, Cycle >35 Days, Cycle Variable, Menses 1-7 Days, Menses >/= 8 Days, Menses Variable, Cycle > 4 Weeks Between, No Menses for 6 Months, Heavy Menses, Light Menses, Normal Menses, Spotting Between Cycles , S/P Hysterectomy, Menopausal, Post Menopausal, Premenarche, Abnormal Vaginal Bleeding, Dysmenorrhea, Dyspareunia, Genital Lesions, Genital Pruritis, Pelvic Pain, Prolapse Symptoms, Sexual Dysfunction, Vaginal Discharge, Vaginal Dryness , Vaginal Odor, Vaginal Pruritis, Other - Menstruation Menstruation: absent: As Per HPI, Amenorrhea, Amenorrhea/ Control, Currently Menstual, Cycle <21 Days, Cycle >35 Days, Cycle Variable, Menses 1-7 Days, Menses >/= 8 Days, Menses Variable, Cycle > 4 Weeks Between, No Menses for 6 Months, Heavy Menses, Light Menses, Normal Menses, Spotting Between Cycles , S/P Hysterectomy, Menopausal, Post Menopausal, Premenarche, Abnormal Vaginal Bleeding, Dysmenorrhea, Other - Musculoskeletal Musculoskeletal: absent: As Per HPI, Abnormal Gait, Arthralgias, Atrophy, Back Pain, Deformity, Joint Swelling, Limited Range of Motion, Loss of Height, Muscle Cramps, Muscle Weakness, Myalgias, Neck Pain, Numbness, Radiating Pain into Limb, Stiffness, Tingling, Other - Integumentary Integumentary: absent: As Per HPI, Acne, Alopecia, Bleeding Lesions, Change in Hair, Change in Nails, Change in Pigmentation, Changing Lesions, Dry Skin, Erythema, Furuncle, Hirsutism, Lesions, New Lesions, Non-Healing Lesions, Photosensitivity, Pruritus, Rash, Skin Pain, Skin Ulcer, Sores, Striae, Swelling , Unusual Bruising, Wounds, Jaundice, Other - Neurological Neurological: absent: As Per HPI, Abnormal Gait, Abnormal Hearing, Abnormal Movements, Abnormal Speech, Behavioral Changes, Burning Sensations, Confusion, Convulsions, Disequilibrium, Dizziness, Numbness, Focal Weakness, Frequent Falls , Headaches, Lack of Coordination, Loss of Vision, Memory Loss, Paresthesias, Radicular Pain, Restless Legs, Sensory Deficit, Syncope, Tingling, Tremor, Vertigo, Weakness, Other Visual Disturbances, Other - Psychiatric Psychiatric: absent: As Per HPI, Abnormal Sleep Pattern, Anhedonia, Anxiety, Auditory Hallucinations, Behavioral Changes, Change in Appetite, Change in Libido, Confusion, Depression, Difficulty Concentrating, Hallucinations, Homicidal Ideation, Hopelessness, Irritability, Memory Loss, Mood Swings, Panic Attacks, Paranoia, Suicidal Ideation, Visual Hallucinations, Tactile Hallucinations, Other Past Patient History - Past Medical History & Family History Past Medical History?: No - Past Social History Smoking Status: Never Smoked - MUSCULOSKELETAL/RHEUMATOLOGICAL Hx Falls: No - PSYCHIATRIC Hx Substance Use: No - SURGICAL HISTORY Hx Surgeries: No - ANESTHESIA Hx Anesthesia: No Meds Allergies/Adverse Reactions: Allergies Allergy/AdvReac Type Severity Reaction Status Date / Time aspirin Allergy Severe ANAPHYLAXIS Verified 04/26/17 18:23 Penicillins Allergy Unknown Verified 04/26/17 18:23 seafood Allergy Severe SWELLING Uncoded 04/26/17 18:23 - Medications Medications: Current Medications Acetaminophen (Tylenol 325mg Tab) 650 mg PO Q6 PRN PRN Reason: Fever >100.4 F Last Admin: 04/26/17 23:16 Dose: 650 mg Famotidine (Pepcid) 20 mg PO DAILY [facility] Last Admin: 04/28/17 09:28 Dose: 20 mg Sodium Chloride (Sodium Chloride 0.9%) 1,000 mls @ 100 mls/hr IV .Q10H [facility] Last Admin: 04/28/17 06:38 Dose: 100 mls/hr Ciprofloxacin (Cipro 400mg/200ml Dsw) 400 mg in 200 mls @ 133 mls/hr IVPB Q12H [facility] Last Admin: 04/28/17 09:29 Dose: 133 mls/hr Saccharomyces Boulardii (Florastor) 250 mg PO BID [facility] Last Admin: 04/28/17 09:28 Dose: 250 mg Physical Exam - Constitutional Appears: Non-toxic, Chronically Ill - Head Exam Head Exam: NORMOCEPHALIC - Eye Exam Eye Exam: PERRL - ENT Exam ENT Exam: Mucous Membranes Dry - Neck Exam Neck exam: Negative for: Lymphadenopathy - Respiratory Exam Respiratory Exam: Decreased Breath Sounds, Clear to Auscultation Bilateral - Cardiovascular Exam Cardiovascular Exam: REGULAR RHYTHM - GI/Abdominal Exam GI & Abdominal Exam: Diminished Bowel Sounds, Soft. absent: Tenderness - Rectal Exam Rectal Exam: Deferred - Exam Exam: NORMAL INSPECTION - Extremities Exam Extremities exam: Positive for: pedal pulses present. Negative for: calf tenderness, pedal edema, tenderness - Back Exam Back exam: absent: CVA tenderness (L), CVA tenderness (R) - Neurological Exam Neurological exam: Alert, CN II-XII Intact, Oriented x3, Reflexes Normal - Psychiatric Exam Psychiatric exam: Normal Mood - Skin Skin Exam: Dry Results - Vital Signs Recent Vital Signs: Last Vital Signs Temp 98.4 F 04/28/17 00:00 Pulse 60 04/28/17 00:00 Resp 20 04/28/17 00:00 BP 96/58 L 04/28/17 00:00 Pulse Ox 98 04/27/17 17:14 - Labs Result Diagrams: 04/28/17 07:57 04/28/17 07:57 Labs: Laboratory Results - last 24 hr 04/28/17 04/28/17 07:57 07:57 WBC 7.0 RBC 3.81 Hgb 11.9 Hct 34.3 MCV 90.1 MCH 31.2 H MCHC 34.6 RDW 13.2 Plt Count 322 MPV 7.3 Neut % (Auto) 64.8 Lymph % (Auto) 20.3 [place] % (Auto) 13.6 H Eos % (Auto) 0.5 Baso % (Auto) 0.8 Neut # (Auto) 4.6 Lymph # (Auto) 1.4 [place] # (Auto) 1.0 H Eos # (Auto) 0.0 Baso # (Auto) 0.1 Sodium 139 Potassium 3.7 Chloride 106 Carbon Dioxide 24 Anion Gap 13 BUN 7 Creatinine 0.7 Est GFR ( Amer) > 60 Est GFR (Non-Af Amer) > 60 Random Glucose 90 Calcium 8.6 Total Bilirubin 0.6 AST 31 ALT 44 Alkaline Phosphatase 51 Total Protein 7.2 Albumin 3.7 Globulin 3.6 Albumin/Globulin Ratio 1.0 Assessment & Plan (1) Pyelonephritis Status: Acute (2) Urinary tract infection Status: Acute - Assessment and Plan (Free Text) Assessment: powell sensitive e coli UTI/.sepsis ok to d/c genta cont cipro 14 days more
[2017-04-29 07:22] VITALS: TEMP 98.3; O2SAT 97
[2017-04-29 07:23] LABS: BASO % 0.9 % (0.0-2.0); EOS # 0.1 K/uL (0.0-0.7); EOS % 1.7 % (0.0-4.0); HEMOGLOBIN 11.7 g/dL (11.0-16.0); LYMPH # 1.1 K/uL (1.0-4.3); LYMPH % 18.8 % (20.0-40.0); MEAN CELL VOLUME 89.9 fL (81.0-99.0); MEAN CORPUSCULAR HEMOGLOBIN 30.8 pg (27.0-31.0); MEAN CORPUSCULAR HGB CONC 34.2 g/dL (33.0-37.0); MEAN PLATELET VOLUME 7.3 fL (7.2-11.7); MONO # 0.7 K/uL (0.0-0.8); NEUT # 3.7 K/uL (1.8-7.0); NEUT % 65.6 % (50.0-75.0); RBC 3.81 Mil/uL (3.80-5.20); RED CELL DISTRIBUTION WIDTH 13.2 % (11.5-14.5); WHITE BLOOD COUNT 5.7 K/uL (4.8-10.8)
[2017-04-29 07:35] LABS: ALBUMIN 3.4 g/dL (3.5-5.0); ALT/SGPT 44 U/L (9-52); AST/SGOT 31 U/L (14-36); BLOOD UREA NITROGEN 8 mg/dL (7-17); CALCIUM 8.3 mg/dl (8.6-10.4); GFR AFRICAN-AMERICAN > 60; GFR NON-AFRICAN AMERICAN > 60
[2017-04-29 08:42] VITALS: BP 114/76; PULSE 67
[2017-04-29] MEDS: Ciprofloxacin 400mg/200ml D5W 400 MG/200 ML BAG IVPB SCH (09:22)
[2017-04-29] MEDS: Saccharomyces Boulardi 250 mg Cap PO SCH (09:26)
--- NOTE | 2017-04-29 11:49 | CP.PCM.PN ---
Subjective - Date & Time of Evaluation Date of Evaluation: 04/29/17 Time of Evaluation: 08:00 - Subjective Subjective: repeat cultures neg no fever or pain Objective - Vital Signs/Intake and Output Vital Signs (last 24 hours): Temp Pulse Resp BP Pulse Ox 98.3 F 67 20 114/76 97 04/29/17 08:40 04/29/17 08:40 04/29/17 08:40 04/29/17 08:40 04/29/17 08:40 Intake and Output: 04/29/17 04/29/17 06:59 18:59 Intake Total 1160 1000 Balance 1160 1000 - Medications Medications: Current Medications Acetaminophen (Tylenol 325mg Tab) 650 mg PO Q6 PRN PRN Reason: Fever >100.4 F Last Admin: 04/26/17 23:16 Dose: 650 mg Famotidine (Pepcid) 20 mg PO DAILY [facility] Last Admin: 04/29/17 09:26 Dose: 20 mg Sodium Chloride (Sodium Chloride 0.9%) 1,000 mls @ 100 mls/hr IV .Q10H [facility] Last Admin: 04/28/17 18:33 Dose: Not Given Ciprofloxacin (Cipro 400mg/200ml Dsw) 400 mg in 200 mls @ 133 mls/hr IVPB Q12H [facility] Last Admin: 04/29/17 09:22 Dose: 133 mls/hr Saccharomyces Boulardii (Florastor) 250 mg PO BID [facility] Last Admin: 04/29/17 09:26 Dose: 250 mg - Labs Labs: 04/29/17 07:09 04/29/17 07:09 PT 12.6 SECONDS (9.7-12.2) H 04/26/17 21:00 INR 1.1 04/26/17 21:00 APTT 29 SECONDS (21-34) 04/26/17 21:00 - Constitutional Appears: Non-toxic, Chronically Ill - Head Exam Head Exam: NORMOCEPHALIC - Eye Exam Eye Exam: PERRL - ENT Exam ENT Exam: Mucous Membranes Dry - Neck Exam Neck Exam: absent: Lymphadenopathy - Respiratory Exam Respiratory Exam: Decreased Breath Sounds - Cardiovascular Exam Cardiovascular Exam: REGULAR RHYTHM - GI/Abdominal Exam GI & Abdominal Exam: Distended - Rectal Exam Rectal Exam: Deferred - Exam Exam: NORMAL INSPECTION - Extremities Exam Extremities Exam: absent: Pedal Edema - Back Exam Back Exam: absent: CVA tenderness (L), CVA tenderness (R) Assessment and Plan (1) Pyelonephritis Status: Acute (2) Urinary tract infection Status: Acute - Assessment and Plan (Free Text) Assessment: d/c on po cipro x14 daYS
--- NOTE | 2017-04-29 12:24 | CP.PCM.DIS ---
<Thaddeus Rodriguez E - Last Filed: 04/29/17 13:44> Provider - Provider Date of Admission: 04/26/17 22:31 Attending physician: Nav Cid MD Time Spent in preparation of Discharge (in minutes): 45 Diagnosis - Discharge Diagnosis (1) Urinary tract infection Status: Acute (2) Leukocytosis Status: Acute (3) Hypokalemia Status: Acute (4) Prophylactic measure Status: Acute Hospital Course - Lab Results Lab Results: Micro Results 04/26/17 21:20 Blood Blood Culture - Preliminary NO GROWTH AFTER 48 HOURS 04/26/17 20:50 Blood Blood Culture - Preliminary NO GROWTH AFTER 48 HOURS 04/26/17 20:48 Urine Urine Culture - Final No Growth (<1,000 CFU/ML) Most Recent Lab Values WBC 5.7 K/uL (4.8-10.8) 04/29/17 07:09 RBC 3.81 Mil/uL (3.80-5.20) 04/29/17 07:09 Hgb 11.7 g/dL (11.0-16.0) 04/29/17 07:09 Hct 34.2 % (34.0-47.0) 04/29/17 07:09 MCV 89.9 fL (81.0-99.0) 04/29/17 07:09 MCH 30.8 pg (27.0-31.0) 04/29/17 07:09 MCHC 34.2 g/dL (33.0-37.0) 04/29/17 07:09 RDW 13.2 % (11.5-14.5) 04/29/17 07:09 Plt Count 365 K/uL (130-400) 04/29/17 07:09 MPV 7.3 fL (7.2-11.7) 04/29/17 07:09 Neut % (Auto) 65.6 % (50.0-75.0) 04/29/17 07:09 Lymph % (Auto) 18.8 % (20.0-40.0) L 04/29/17 07:09 [place] % (Auto) 13.0 % (0.0-10.0) H 04/29/17 07:09 Eos % (Auto) 1.7 % (0.0-4.0) 04/29/17 07:09 Baso % (Auto) 0.9 % (0.0-2.0) 04/29/17 07:09 Neut # (Auto) 3.7 K/uL (1.8-7.0) 04/29/17 07:09 Lymph # (Auto) 1.1 K/uL (1.0-4.3) 04/29/17 07:09 [place] # (Auto) 0.7 K/uL (0.0-0.8) 04/29/17 07:09 Eos # (Auto) 0.1 K/uL (0.0-0.7) 04/29/17 07:09 Baso # (Auto) 0.0 K/uL (0.0-0.2) 04/29/17 07:09 Neutrophils % (Manual) 77 % (50-75) H 04/27/17 07:34 Band Neutrophils % 1 % (0-2) 04/27/17 07:34 Lymphocytes % (Manual) 6 % (20-40) L 04/27/17 07:34 Monocytes % (Manual) 15 % (0-10) H 04/27/17 07:34 Eosinophils % (Manual) 1 % (0-4) 04/27/17 07:34 Platelet Estimate Normal (NORMAL) 04/27/17 07:34 Ovalocytes Slight 04/27/17 07:34 PT 12.6 SECONDS (9.7-12.2) H 04/26/17 21:00 INR 1.1 04/26/17 21:00 APTT 29 SECONDS (21-34) 04/26/17 21:00 pO2 24 mm/Hg (30-55) L 04/26/17 21:10 VBG pH 7.40 (7.32-7.43) 04/26/17 21:10 VBG pCO2 39 mmHg (40-60) L 04/26/17 21:10 VBG HCO3 23.1 mmol/L 04/26/17 21:10 VBG Total CO2 25.4 mmol/L (22-28) 04/26/17 21:10 VBG O2 Sat (Calc) 41.6 % (40-65) 04/26/17 21:10 VBG Base Excess -0.5 mmol/L (0.0-2.0) L 04/26/17 21:10 VBG Potassium 3.6 mmol/L (3.6-5.2) 04/26/17 21:10 Sodium 136.0 mmol/l (132-148) 04/26/17 21:10 Chloride 101.0 mmol/L (98-107) 04/26/17 21:10 Glucose 86 mg/dl (65-105) 04/26/17 21:10 Lactate 1.4 mmol/L (0.7-2.1) 04/26/17 21:10 Sodium 137 mmol/L (132-148) 04/29/17 07:09 Potassium 4.0 mmol/L (3.6-5.2) 04/29/17 07:09 Chloride 106 mmol/L (98-107) 04/29/17 07:09 Carbon Dioxide 22 mmol/L (22-30) 04/29/17 07:09 Anion Gap 13 (10-20) 04/29/17 07:09 BUN 8 mg/dL (7-17) 04/29/17 07:09 Creatinine 0.7 mg/dL (0.7-1.2) 04/29/17 07:09 Est GFR ( Amer) > 60 04/29/17 07:09 Est GFR (Non-Af Amer) > 60 04/29/17 07:09 Random Glucose 89 mg/dL (65-105) 04/29/17 07:09 Calcium 8.3 mg/dl (8.6-10.4) L 04/29/17 07:09 Phosphorus 2.2 mg/dL (2.5-4.5) L 04/27/17 07:34 Magnesium 2.0 mg/dL (1.6-2.3) 04/27/17 07:34 Total Bilirubin 0.4 mg/dL (0.2-1.3) 04/29/17 07:09 AST 31 U/L (14-36) 04/29/17 07:09 ALT 44 U/L (9-52) 04/29/17 07:09 Alkaline Phosphatase 51 U/L (38-126) 04/29/17 07:09 Total Protein 7.0 g/dL (6.3-8.3) 04/29/17 07:09 Albumin 3.4 g/dL (3.5-5.0) L 04/29/17 07:09 Globulin 3.5 gm/dL (2.2-3.9) 04/29/17 07:09 Albumin/Globulin Ratio 1.0 (1.0-2.1) 04/29/17 07:09 Venous Blood Potassium 3.6 mmol/L (3.6-5.2) 04/26/17 21:10 Urine Color Yellow (YELLOW) 04/26/17 21:00 Urine Clarity Clear (Clear) 04/26/17 21:00 Urine pH 5.0 (5.0-8.0) 04/26/17 21:00 Ur Specific [place] 1.008 (1.003-1.030) 04/26/17 21:00 Urine Protein Negative mg/dL (NEGATIVE) 04/26/17 21:00 Urine Glucose (UA) Normal mg/dL (Normal) 04/26/17 21:00 Urine Ketones Trace mg/dL (NEGATIVE) 04/26/17 21:00 Urine Blood 1+ (NEGATIVE) H 04/26/17 21:00 Urine Nitrate Negative (NEGATIVE) 04/26/17 21:00 Urine Bilirubin Negative (NEGATIVE) 04/26/17 21:00 Urine Urobilinogen Normal mg/dL (0.2-1.0) 04/26/17 21:00 Ur Leukocyte Esterase Trace Leandro/uL (Negative) 04/26/17 21:00 Urine WBC (Auto) 5 /hpf (0-5) 04/26/17 21:00 Urine RBC (Auto) 4 /hpf (0-3) H 04/26/17 21:00 Ur Squamous Epith Cells < 1 /hpf (0-5) 04/26/17 21:00 Ur Transition Epith Cell < 1 /hpf (0-3) 04/26/17 21:00 Urine Bacteria Rare (<OCC) 04/26/17 21:00 Influenza Typ A,B (EIA) Negative for flu a/b (NEGATIVE) 04/27/17 14:17 - Hospital Course Hospital Course: HPI (As per admission): Patient is a 46 year old female with no past medical history who presents to the ED as instructed by her PMD due to gram negative rods noted in her urine culture and blood culture. Patient reports that she started experience a cough that started last week Saturday and UTI symptoms that started last week . Patient states that by Saturday (04/21/17), her symptoms had improved significantly. However, on 04/23/17, patient noted increase urination and pressure with urination, therefore, she went to see her PMD on , and was sent to the [facility] ED. Patient was noted to have a UTI and was discharged on Ciprofloxacin [Cipro] 500 mg PO BID #14 tab. Patient reports she started to feel better and was even able to go to work on 04/26/17, however, patient noted some fever, chills, back spams and elevated temp after work and was also notified of gram negative rods noted in her urine culture and blood culture, therefore, she came to the ED. During the encounter, patient denied chest pain, palpitations, SOB, nausea, vomiting, hematuria but admits to fever, chills, and back spams Hospital Course: Patient was admitted with diagnosis of UTI and bacteremia, therefore, patient was managed on appropriate antibiotics. Infectious disease, Dr. Higuera was consulted, who agreed with the course of antibiotics ordered by the medicine team. Repeat blood culture and urine culture were negative X48 hours and negative, respectively. Patient remained stable without any acute issues over the course of admission. Patient remained afebrile for 24 hours. Patient was deemed cleared for discharge based on negative blood culture and urine culture. Patient was discharge with prescription for ciprofloxacin 500mg PO BID for 14 days. Pertinent Labs: Urine culture and Blood culture (04/25/17): Gram negative rods Urine culture and Blood culture (04/26/17): Negative and negative X 48 hours This is a summary of events. For a complete course, please refer to the medical records Discharge Exam - Head Exam Head Exam: NORMAL INSPECTION, NORMOCEPHALIC - Eye Exam Eye Exam: EOMI, Normal appearance - ENT Exam ENT Exam: Mucous Membranes Moist - Respiratory Exam Respiratory Exam: Clear to PA & Lateral, NORMAL BREATHING PATTERN. absent: Rales, Rhonchi, Wheezes, Respiratory Distress - Cardiovascular Exam Cardiovascular Exam: REGULAR RHYTHM, +S1, +S2 - GI/Abdominal Exam GI & Abdominal Exam: Normal Bowel Sounds, Soft. absent: Tenderness - Extremities Exam Extremities exam: normal inspection - Back Exam Back exam: NORMAL INSPECTION. absent: CVA tenderness (L), CVA tenderness (R) - Neurological Exam Neurological exam: Alert, Oriented x3 - Psychiatric Exam Psychiatric exam: Normal Affect, Normal Mood - Skin Skin Exam: Normal Color Discharge Plan - Discharge Medications Prescriptions: Ciprofloxacin [Cipro] 500 mg PO BID 14 Days tab - Follow Up Plan Condition: FAIR Disposition: HOME/ ROUTINE Instructions: Ciprofloxacin (Systemic), Kidney Infection (DC) Additional Instructions: Please discharge patient home Please continue the following medication: 1. Ciprofloxacin 500mg PO BID for 14 days, please take 1 tablet at breakfast and 1 tablet at dinner Please take an over the counter probiotics with antibiotics Please follow up with your primary care doctor Dr. Brock within one week of discharge Please return to the hospital if symptoms resumes such as fever, chills, nausea , vomiting, back pain Referrals: Hernesto Brock MD [Staff Provider] - <Shirin Paul - Last Filed: 05/01/17 14:24> Provider - Provider Date of Admission: 04/26/17 22:31 Attending physician: Shirin Paul MD Hospital Course - Lab Results Lab Results: Micro Results 04/26/17 21:20 Blood Blood Culture - Preliminary NO GROWTH AFTER 4 DAYS 04/26/17 20:50 Blood Blood Culture - Preliminary NO GROWTH AFTER 4 DAYS 04/26/17 20:48 Urine Urine Culture - Final No Growth (<1,000 CFU/ML) Most Recent Lab Values WBC 5.7 K/uL (4.8-10.8) 04/29/17 07:09 RBC 3.81 Mil/uL (3.80-5.20) 04/29/17 07:09 Hgb 11.7 g/dL (11.0-16.0) 04/29/17 07:09 Hct 34.2 % (34.0-47.0) 04/29/17 07:09 MCV 89.9 fL (81.0-99.0) 04/29/17 07:09 MCH 30.8 pg (27.0-31.0) 04/29/17 07:09 MCHC 34.2 g/dL (33.0-37.0) 04/29/17 07:09 RDW 13.2 % (11.5-14.5) 04/29/17 07:09 Plt Count 365 K/uL (130-400) 04/29/17 07:09 MPV 7.3 fL (7.2-11.7) 04/29/17 07:09 Neut % (Auto) 65.6 % (50.0-75.0) 04/29/17 07:09 Lymph % (Auto) 18.8 % (20.0-40.0) L 04/29/17 07:09 [place] % (Auto) 13.0 % (0.0-10.0) H 04/29/17 07:09 Eos % (Auto) 1.7 % (0.0-4.0) 04/29/17 07:09 Baso % (Auto) 0.9 % (0.0-2.0) 04/29/17 07:09 Neut # (Auto) 3.7 K/uL (1.8-7.0) 04/29/17 07:09 Lymph # (Auto) 1.1 K/uL (1.0-4.3) 04/29/17 07:09 [place] # (Auto) 0.7 K/uL (0.0-0.8) 04/29/17 07:09 Eos # (Auto) 0.1 K/uL (0.0-0.7) 04/29/17 07:09 Baso # (Auto) 0.0 K/uL (0.0-0.2) 04/29/17 07:09 Neutrophils % (Manual) 77 % (50-75) H 04/27/17 07:34 Band Neutrophils % 1 % (0-2) 04/27/17 07:34 Lymphocytes % (Manual) 6 % (20-40) L 04/27/17 07:34 Monocytes % (Manual) 15 % (0-10) H 04/27/17 07:34 Eosinophils % (Manual) 1 % (0-4) 04/27/17 07:34 Platelet Estimate Normal (NORMAL) 04/27/17 07:34 Ovalocytes Slight 04/27/17 07:34 PT 12.6 SECONDS (9.7-12.2) H 04/26/17 21:00 INR 1.1 04/26/17 21:00 APTT 29 SECONDS (21-34) 04/26/17 21:00 pO2 24 mm/Hg (30-55) L 04/26/17 21:10 VBG pH 7.40 (7.32-7.43) 04/26/17 21:10 VBG pCO2 39 mmHg (40-60) L 04/26/17 21:10 VBG HCO3 23.1 mmol/L 04/26/17 21:10 VBG Total CO2 25.4 mmol/L (22-28) 04/26/17 21:10 VBG O2 Sat (Calc) 41.6 % (40-65) 04/26/17 21:10 VBG Base Excess -0.5 mmol/L (0.0-2.0) L 04/26/17 21:10 VBG Potassium 3.6 mmol/L (3.6-5.2) 04/26/17 21:10 Sodium 136.0 mmol/l (132-148) 04/26/17 21:10 Chloride 101.0 mmol/L (98-107) 04/26/17 21:10 Glucose 86 mg/dl (65-105) 04/26/17 21:10 Lactate 1.4 mmol/L (0.7-2.1) 04/26/17 21:10 Sodium 137 mmol/L (132-148) 04/29/17 07:09 Potassium 4.0 mmol/L (3.6-5.2) 04/29/17 07:09 Chloride 106 mmol/L (98-107) 04/29/17 07:09 Carbon Dioxide 22 mmol/L (22-30) 04/29/17 07:09 Anion Gap 13 (10-20) 04/29/17 07:09 BUN 8 mg/dL (7-17) 04/29/17 07:09 Creatinine 0.7 mg/dL (0.7-1.2) 04/29/17 07:09 Est GFR ( Amer) > 60 04/29/17 07:09 Est GFR (Non-Af Amer) > 60 04/29/17 07:09 Random Glucose 89 mg/dL (65-105) 04/29/17 07:09 Calcium 8.3 mg/dl (8.6-10.4) L 04/29/17 07:09 Phosphorus 2.2 mg/dL (2.5-4.5) L 04/27/17 07:34 Magnesium 2.0 mg/dL (1.6-2.3) 04/27/17 07:34 Total Bilirubin 0.4 mg/dL (0.2-1.3) 04/29/17 07:09 AST 31 U/L (14-36) 04/29/17 07:09 ALT 44 U/L (9-52) 04/29/17 07:09 Alkaline Phosphatase 51 U/L (38-126) 04/29/17 07:09 Total Protein 7.0 g/dL (6.3-8.3) 04/29/17 07:09 Albumin 3.4 g/dL (3.5-5.0) L 04/29/17 07:09 Globulin 3.5 gm/dL (2.2-3.9) 04/29/17 07:09 Albumin/Globulin Ratio 1.0 (1.0-2.1) 04/29/17 07:09 Venous Blood Potassium 3.6 mmol/L (3.6-5.2) 04/26/17 21:10 Urine Color Yellow (YELLOW) 04/26/17 21:00 Urine Clarity Clear (Clear) 04/26/17 21:00 Urine pH 5.0 (5.0-8.0) 04/26/17 21:00 Ur Specific [place] 1.008 (1.003-1.030) 04/26/17 21:00 Urine Protein Negative mg/dL (NEGATIVE) 04/26/17 21:00 Urine Glucose (UA) Normal mg/dL (Normal) 04/26/17 21:00 Urine Ketones Trace mg/dL (NEGATIVE) 04/26/17 21:00 Urine Blood 1+ (NEGATIVE) H 04/26/17 21:00 Urine Nitrate Negative (NEGATIVE) 04/26/17 21:00 Urine Bilirubin Negative (NEGATIVE) 04/26/17 21:00 Urine Urobilinogen Normal mg/dL (0.2-1.0) 04/26/17 21:00 Ur Leukocyte Esterase Trace Leandro/uL (Negative) 04/26/17 21:00 Urine WBC (Auto) 5 /hpf (0-5) 04/26/17 21:00 Urine RBC (Auto) 4 /hpf (0-3) H 04/26/17 21:00 Ur Squamous Epith Cells < 1 /hpf (0-5) 04/26/17 21:00 Ur Transition Epith Cell < 1 /hpf (0-3) 04/26/17 21:00 Urine Bacteria Rare (<OCC) 04/26/17 21:00 Influenza Typ A,B (EIA) Negative for flu a/b (NEGATIVE) 04/27/17 14:17 Attending/Attestation - Attestation I have personally seen and examined this patient.: Yes I have fully participated in the care of the patient.: Yes I have reviewed all pertinent clinical information, including history, physical exam and plan: Yes Notes (Text): Seen and examined patient has no complain Discussed about bacteremia and need for 14 days of medication. asked to report to ER for fever spikes,flank pain or feeling sick Patient was asked to increase fluid intake. I agree with the residents discharge plan 05/01/17 14:20
== END 2017-04-29 14:45 | disposition home or self-care (01) | DRG 690 ==
LOC: C.ER 18:14 → C.9E 22:31 → C.3T 22:51
PROVIDERS: ADMIT Internal Medicine; ATTEND Internal Medicine
DX: N39.0 Urinary tract infection, site not specified (principal); R78.81 Bacteremia; B96.20 Unspecified Escherichia coli [E. coli] as the cause of diseases classified elsewhere; E87.6 Hypokalemia; Z88.0 Allergy status to penicillin